=== PATIENT | male | born 1955 | race Caucasian/White ===

== ENCOUNTER 2016-07-23 16:30 | Emergency (ER) | payer OTHER ==
[~2016-07-23] VITALS: Ht 188 cm; Wt 81.6 kg
[2016-07-23 16:30] VITALS: BP 139/88
== END 2016-07-23 17:44 ==
LOC: ER 16:34
DX: S09.90XA Unspecified injury of head, initial encounter (principal); X58.XXXA Exposure to other specified factors, initial encounter; Y93.9 Activity, unspecified; Y92.149 Unspecified place in prison as the place of occurrence of the external cause; Y99.8 Other external cause status
CPT/HCPCS: 99283; A4606; Z7610

== ENCOUNTER 2019-05-29 14:13 | Emergency (ER) | payer MEDICARE, OTHER ==
[~2019-05-29] VITALS: Ht 188 cm; Wt 124.7 kg
[2019-05-29] MEDS ORDERED: PIPERACILLIN /TAZOBACTAM 3.375 G in IV D5W 50 ML IV ONE (14:30)
[2019-05-29] MEDS ORDERED: IV NS 0.9% 1,000 ML BAG IV ONE (14:30)
[2019-05-29] MEDS ORDERED: VANCOMYCIN 1 GM in IV D5W 250 ML IV ONE (14:30)
--- NOTE | 2019-05-29 14:30 | NUR ---
PT REFUSES EKG
--- NOTE | 2019-05-29 14:32 | NUR ---
BIOTICS TO GIVEN PT WALKED INTO EMERGENCY ROOM FOR BILATERAL LOWER EXTREMITY SWELLING PT ALERT WITH ORIENTATION BILATERAL FEET RED WITH SWELLINGG. PT REFUSED IV MD AWARE PT ALLOWING EVENT SECURITY OFFICER TO DRAW BLOOD SAMPLES. PT STATES IF HE NEEDS ANTIBIOTICS BY MOUTH WILL CONTINUE TO MONITOR
[2019-05-29 14:47] LABS: BASOPHILS % (AUTO) 0.2 % (0.0-2.0); EOSINOPHILS % (AUTO) 0.9 % (0.0-6.0); HEMATOCRIT 37 % (39-51); HEMOGLOBIN 11.8 g/dL (13.5-17.5); LYMPHOCYTES # (AUTO) 0.6 /CMM (0.8-4.8); LYMPHOCYTES % (AUTO) 9.8 % (20.0-44.0); MEAN CORPUSCULAR HGB CONC 32 g/dl (31.0-36.0); MEAN CORPUSCULAR VOLUME 86 fL (80-96); MONOCYTES # (AUTO) 0.9 /CMM (0.1-1.30); MONOCYTES % (AUTO) 14.7 % (2.0-12.0); NEUTROPHILS # (AUTO) 4.4 /CMM (1.8-8.9); NEUTROPHILS % (AUTO) 74.4 % (43.0-81.0); PLATELET COUNT (AUTO) 240 /CMM (150-450); RED BLOOD CELL COUNT(AUTO) 4.31 MIL/uL (4.5-6.0)
--- NOTE | 2019-05-29 14:47 | NUR ---
PT REFUSED ULTRA SOUND
--- NOTE | 2019-05-29 14:47 | NUR ---
PT REFUSED ARTERIAL DPLR LWER EXT BILATERAL EXAM. ADVISED RN AND DR. PLEITEZ.
[2019-05-29] MEDS ORDERED: PHENOL/SODIUM PHENOLATE 1 LOZ LOZENGE PO ONE (15:00)
[2019-05-29] MEDS ORDERED: CEPHALEXIN MONOHYDRATE 500 MG CAPSULE PO ONE ×2 (15:00→15:02)
[2019-05-29] MEDS ORDERED: SULFAMETH/TRIMETH 800/160 MG 1 UDTAB TABLET PO ONE (15:00)
[2019-05-29] MEDS ORDERED: SULFAMETH/TRIMETH 800/160 MG 1 UDTAB TABLET ONE (15:03)
[2019-05-29 15:08] LABS: ALANINE AMINOTRANSFERASE 98 U/L (12-78); ALBUMIN 2.9 g/dL (3.4-5.0); ALKALINE PHOSPHATASE 85 U/L (46-116); ASPARTATE AMINOTRANSFERASE 120 U/L (15-37); BILIRUBIN,DIRECT 0.2 mg/dL (0.0-0.2); BILIRUBIN,TOTAL 0.5 mg/dL (0.2-1.0); CALCIUM, SERUM 8.5 mg/dL (8.5-10.1); CARBON DIOXIDE 32 mmol/L (21-32); CHLORIDE 104 mmol/L (98-107); CREATININE 1.2 mg/dL (0.6-1.3); GLUCOSE 124 mg/dL (74-106); POTASSIUM 4.4 mmol/L (3.5-5.1); SODIUM SERUM 139 mmol/L (136-145); TOTAL PROTEIN, SERUM 6.4 g/dL (6.4-8.2); UREA NITROGEN, BLOOD 19 mg/dL (7-18)
--- NOTE | 2019-05-29 15:08 | NUR ---
PT GIVEN SNACK AND PO MEDICATIONS
[2019-05-29 15:55] VITALS: BP 152/86
== END 2019-05-29 16:10 | disposition home or self-care (01) ==
LOC: ER 14:15
DX: L03.116 Cellulitis of left lower limb (principal); L03.115 Cellulitis of right lower limb; R94.31 Abnormal electrocardiogram [ECG] [EKG]; F25.9 Schizoaffective disorder, unspecified; F31.9 Bipolar disorder, unspecified; F17.200 Nicotine dependence, unspecified, uncomplicated; Z59.0 Homelessness
CPT/HCPCS: 36415; 71045; 73630 ×2; 80048; 80076; 82962; 83605; 85025; 85730; 87040 ×2; 93005; 99284; J2543; J7060